=== PATIENT | male | born 1995 | race Hispanic/Latino ===

== ENCOUNTER 2021-04-01 05:25 | Emergency (ER) | payer SELFPAY ==
--- NOTE | 2021-04-01 07:02 | ER ---
Nurse's Notes [facility] Name: Marc Thomas Age: 25 yrs Sex: Male : 1995 Arrival Date: 04/01/2021 Time: 05:30 Bed 15 Private MD: Diagnosis: Streptococcal pharyngitis Presentation: 04/01 05:55 Chief complaint: Patient states: he was exposed to Covid from his daughter who bb recovered a few weeks ago and he has been SOB, with occasional vomiting and diarrhea and wakes up at night. Coronavirus screen: diarrhea, shortness of breath, vomiting. Client presents with at least one sign or symptom that may indicate coronavirus-19. Standard/surgical mask placed on the client. Ebola Screen: No symptoms or risks identified at this time. Initial Sepsis Screen: Does the patient meet any 2 criteria? No. Patient's initial sepsis screen is negative. Does the patient have a suspected source of infection? No. Patient's initial sepsis screen is negative. Risk Assessment: Do you want to hurt yourself or someone else? Patient reports no desire to harm self or others. Onset of symptoms was March 2021. 05:55 Method Of Arrival: Ambulatory bb 05:55 Acuity: FE 3 bb Triage Assessment: 06:00 General: Appears in no apparent distress. comfortable, Behavior is calm, cooperative. mr2 Pain: Denies pain. Cardiovascular: No deficits noted. Denies chest pain, palpitations. Historical: - Allergies: 05:58 No Known Allergies; bb - Home Meds: 05:58 None [Active]; bb - PMHx: 05:58 None; bb - PSHx: 05:58 None; bb - Immunization history:: Adult Immunizations up to date, Client reports having NOT received the Covid vaccine. - Social history:: Smoking status: Patient reports the use of cigarette tobacco products, cigars, Patient uses alcohol, but reports only rare drinking. Patient/guardian denies using street drugs. Screenin:08 Abuse screen: Denies threats or abuse. Denies injuries from another. Nutritional mr2 screening: No deficits noted. Tuberculosis screening: No symptoms or risk factors identified. Fall Risk None identified. Assessment: 06:08 Pain: Complains of pain in mid-sternal area Pain does not radiate. Pain at worst was 3 mr2 out of 10 on a pain scale. Pain began gradually, 1 day ago. Aggravated by coughing. 07:26 Reassessment: Patient appears in no apparent distress at this time. No changes from tw2 previously documented assessment. Patient and/or family updated on plan of care and expected duration. Pain level reassessed. Patient is alert, oriented x 3, equal unlabored respirations, skin warm/dry/pink. Vital Signs: 05:55 BP 145 / 96; Pulse 103; Resp 16 S; Temp 99.3(O); Pulse Ox 100% on R/A; Weight 81.65 kg bb (R); Height 5 ft. 6 in. (167.64 cm) (R); 05:55 Body Mass Index 29.05 (81.65 kg, 167.64 cm) ED Course: 05:30 Patient arrived in ED. bp1 05:47 Sandhya Juarez, RN is Primary Nurse. lp1 05:58 Triage completed. bb 05:58 Arm band placed on Patient placed in an exam room, on a stretcher. bb 06:02 Angel Reis NP is PHCP. pm1 06:02 Claudia Luciano MD is Attending Physician. pm1 06:08 XRAY Chest (1 view) In Process Unspecified. EDMS 06:08 Bed in low position. Call light in reach. Side rails up X2. import coordination and production head on. Pulse mr2 ox on. NIBP on. 06:08 No provider procedures requiring assistance completed. Patient did not have IV access mr2 during this emergency room visit. Patient maintains SpO2 saturation greater than 95% on room air. 06:49 Flu Sent. mr2 Administered Medications: No medications were administered Outcome: 07:01 Discharge ordered by . pm1 07:26 Discharged to home ambulatory. tw2 07:26 Condition: stable 07:26 Discharged to tw2 07:26 Discharge instructions given to patient. 07:26 Discharge instructions given to patient, Instructed on discharge instructions, follow up and referral plans. medication usage, Demonstrated understanding of instructions, follow-up care, medications, Prescriptions given X 1. 07:27 Patient left the ED. tw2 Signatures: Dispatcher [employer] EDMS Stephanie Cardozo RN RN bb Sandhya Juarez, RN RN lp1 Angel Reis, SHARRI QUALITY ASSURANCE NURSE pm1 Falguni Spain RN RN tw2 Stacie Call Mike, RN RN mr2
--- NOTE | 2021-04-01 07:02 | EDPHYS ---
Physician Documentation [facility] Name: Marc Thomas Age: 25 yrs Sex: Male : 1995 Arrival Date: 04/01/2021 Time: 05:30 Bed 15 Private MD: ED Physician Claudia Luciano HPI: 04/01 06:07 This 25 yrs old Male presents to ER via Ambulatory with complaints of Chest pm1 Pain, Breathing Difficulty. 06:07 The patient or guardian reports cough, with no sputum. Onset: The symptoms/episode pm1 began/occurred 2 week(s) ago. Severity of symptoms: in the emergency department the symptoms are actually worse. Modifying factors: The symptoms are alleviated by nothing, the symptoms are aggravated by nothing. Associated signs and symptoms: Pertinent positives: chest pain, with cough, diarrhea, sore throat, Pertinent negatives: fever, vomiting. The patient has not experienced similar symptoms in the past. The patient has not recently seen a physician. Patent presenting to the ER with complaints of cough and chest pain. Patient is here with his significant other 8-month-old child who recently over Covid. Patient is concerned he may have Covid. Historical: - Allergies: 05:58 No Known Allergies; bb - Home Meds: 05:58 None [Active]; bb - PMHx: 05:58 None; bb - PSHx: 05:58 None; bb - Immunization history:: Adult Immunizations up to date, Client reports having NOT received the Covid vaccine. - Social history:: Smoking status: Patient reports the use of cigarette tobacco products, cigars, Patient uses alcohol, but reports only rare drinking. Patient/guardian denies using street drugs. ROS: 06:07 Constitutional: Negative for fever, chills, and weight loss. pm1 06:07 MS/Extremity: Negative for injury and deformity, Skin: Negative for injury, rash, and discoloration. 06:07 Neuro: Negative for headache, weakness, numbness, tingling, and seizure. 06:07 ENT: Positive for sore throat, Negative for ear pain. 06:07 Cardiovascular: Positive for chest pain, with cough. 06:07 Respiratory: Positive for cough, shortness of breath. 06:07 All other systems are negative. Exam: 06:07 Constitutional: This is a well developed, well nourished patient who is awake, alert, pm1 and in no acute distress. Head/Face: Normocephalic, atraumatic. 06:07 Skin: Warm, dry with normal turgor. Normal color with no rashes, no lesions, and no evidence of cellulitis. MS/ Extremity: Pulses equal, no cyanosis. Neurovascular intact. Full, normal range of motion. 06:07 Cardiovascular: Exam negative for acute changes, Rate: normal, Rhythm: regular, Pulses: no pulse deficits are appreciated, Heart sounds: normal, normal S1and S2, Edema: is not appreciated. 06:07 Respiratory: Exam negative for acute changes, respiratory distress, shortness of breath, Breath sounds: are clear throughout. 06:07 Abdomen/GI: Exam negative for acute changes, Palpation: abdomen is soft and non-tender, in all quadrants. 06:07 Neuro: Exam negative for acute changes, Orientation: is normal, Mentation: is normal, Motor: is normal, moves all fours. Vital Signs: 05:55 BP 145 / 96; Pulse 103; Resp 16 S; Temp 99.3(O); Pulse Ox 100% on R/A; Weight 81.65 kg bb (R); Height 5 ft. 6 in. (167.64 cm) (R); 05:55 Body Mass Index 29.05 (81.65 kg, 167.64 cm) bb MDM: 06:07 Patient medically screened. pm1 06:58 Data reviewed: vital signs. Data interpreted: Pulse oximetry: on room air is 100 %. pm1 Interpretation: normal. Counseling: I had a detailed discussion with the patient and/or guardian regarding: the historical points, exam findings, and any diagnostic results supporting the discharge/admit diagnosis, positive strep result. 06:58 Refusal of service: The patient/guardian displays adequate decision making capability pm1 and despite a detailed discussion of alternatives, benefits, risks, and consequences refuses: Patient does not want to wait for flu, covid or radiology results because his grandmother, the patient's ride, would like to go home now. 04/01 06:07 Order name: Strep; Complete Time: 06:50 pm1 04/01 05:48 Order name: XRAY Chest (1 view); Complete Time: 09:20 sp3 04/01 05:48 Order name: EKG; Complete Time: 05:49 sp3 04/01 06:07 Order name: Flu; Complete Time: 07:00 pm1 04/01 06:47 Order name: SARS-COV-2 RT PCR; Complete Time: 09:20 EDMS 04/01 05:48 Order name: EKG - Nurse/Tech; Complete Time: 06:47 sp3 04/01 05:48 Order name: O2 Sat Monitoring; Complete Time: 06:35 sp3 04/01 06:07 Order name: Droplet/Contact Precautions; Complete Time: 06:35 pm1 04/01 06:07 Order name: Labs collected and sent; Complete Time: 06:47 pm1 04/01 06:07 Order name: O2 Per Protocol; Complete Time: 06:35 pm1 Administered Medications: No medications were administered Disposition: 04/02 06:41 Co-signature as Attending Physician, Claudia Luciano MD I agree with the assessment and sp3 plan of care. Disposition Summary: 04/01/21 07:01 Discharge Ordered Location: Home pm1 Problem: new pm1 Symptoms: have improved pm1 Condition: Stable pm1 Diagnosis - Streptococcal pharyngitis pm1 Followup: pm1 - With: Emergency Department - When: As needed - Reason: Worsening of condition Followup: pm1 - With: Private Physician - When: 2 - 3 days - Reason: Recheck today's complaints, Continuance of care, Re-evaluation by your physician Discharge Instructions: - Discharge Summary Sheet pm1 - Strep Throat, Adult pm1 Forms: - Medication Reconciliation Form pm1 - Thank You Letter pm1 - Antibiotic Education pm1 - Prescription Opioid Use pm1 - Work release form eb Prescriptions: - Amoxicillin 500 mg Oral Capsule - take 1 capsule by ORAL route every 8 hours for 10 days; 30 tablet; Refills: 0, pm1 Product Selection Permitted Signatures: Dispatcher [employer] EDMS Stephanie Cardozo RN RN Angel Patten, SHARRI IMCU SPECIALIST pm1 Claudia Luciano MD MD sp3 Corrections: (The following items were deleted from the chart) 04/01 06:47 06:07 CORONAVIRUS+ ordered. EDMS EDMS
[2021-04-01 07:46] VITALS: BP 145/96; TEMP 99.3; O2SAT 100
--- NOTE | 2021-04-01 08:27 | RAD REPORT ---
EXAM DESCRIPTION: RAD - Chest Single View - 04/01/2021 6:08 am CLINICAL HISTORY: CHEST PAIN COMPARISON: None TECHNIQUE: AP portable chest image was obtained 04/01/2021 6:08 am . FINDINGS: Lungs are clear. Heart and vasculature are normal. No measurable pleural effusion and no p neumothorax. No acute bony abnormality seen. No acute aortic findings suspected. IMPRESSION: No acute cardiopulmonary process.
== END 2021-04-01 07:27 | disposition home or self-care (01) ==
LOC: ER 05:25
DX: J02.0 Streptococcal pharyngitis (principal); F17.290 Nicotine dependence, other tobacco product, uncomplicated; Z20.822 Contact with and (suspected) exposure to COVID-19
CPT/HCPCS: 71045; 87081; 87804; 93005; 99285; U0003